=== PATIENT | male | born 1985 | race Caucasian/White ===

== ENCOUNTER 2017-12-29 15:03 | Emergency (ER) | payer OTHER ==
[~2017-12-29] VITALS: Ht 182.9 cm; Wt 92.3 kg
[~2017-12-29 15:03] MED LIST: NORCO 5/3251 TABLET PO
[2017-12-29 17:19] VITALS: BP 147/100
[2017-12-30] MEDS ORDERED: ULTRAM50 MG PO (12:10)
== END 2017-12-29 17:21 | disposition home or self-care (01) ==
LOC: EME 15:03
PROC: 2W3CX1Z Immobilization of Right Lower Arm using Splint (ICD-10-PCS; principal; 2017-12-29)
DX: M79.644 Pain in right finger(s) (principal); V49.40XA Driver injured in collision with unspecified motor vehicles in traffic accident, initial encounter; W22.11XA Striking against or struck by driver side automobile airbag, initial encounter; Y92.410 Unspecified street and highway as the place of occurrence of the external cause; F41.9 Anxiety disorder, unspecified; E78.5 Hyperlipidemia, unspecified
CPT/HCPCS: 73130; 99281; 99283

== ENCOUNTER 2017-12-30 09:55 | Emergency (ER) | payer OTHER ==
[~2017-12-30] VITALS: Ht 182.9 cm; Wt 92.6 kg
[2017-12-30] MEDS ORDERED: ULTRAM50 MG PO (12:10)
[2017-12-30 12:26] VITALS: BP 137/80
== END 2017-12-30 12:28 | disposition home or self-care (01) ==
LOC: EME 09:55
PROC: 2W3CX1Z Immobilization of Right Lower Arm using Splint (ICD-10-PCS; principal; 2017-12-30)
DX: S60.221A Contusion of right hand, initial encounter (principal); F41.9 Anxiety disorder, unspecified; E78.5 Hyperlipidemia, unspecified; I10 Essential (primary) hypertension; Z88.7 Allergy status to serum and vaccine; F17.200 Nicotine dependence, unspecified, uncomplicated
CPT/HCPCS: 99281; 99283